=== PATIENT | female | born 1975 | race Caucasian/White ===

== ENCOUNTER 2017-09-03 20:00 | Emergency (ER) | payer OTHER ==
[~2017-09-03] VITALS: Ht 172.7 cm; Wt 123.4 kg
[2017-09-03 20:09] VITALS: Ht 172.7 cm; Wt 123.4 kg
[2017-09-03 22:23] VITALS: BP 140/85
== END 2017-09-03 22:24 | disposition home or self-care (01) ==
LOC: ED 20:00
DX: L02.416 Cutaneous abscess of left lower limb (principal)